=== PATIENT | female | born 1955 | race Hispanic/Latino ===

== ENCOUNTER 2018-09-24 09:21 | Outpatient (CLI) | payer OTHER ==
--- NOTE | 2018-09-26 12:54 | Magnetic Resonance Report ---
BILATERAL BREAST MRI WITHOUT AND WITH CONTRAST: 09/24/18 09:21:00 CLINICAL: Breast cancer survivor status post left partial mastectomy and axillary lymph node dissection for stage I left breast cancer in 1999. She received chemotherapy, radiation therapy, 5 years of tamoxifen and 5 years of Arimidex. She has a family history of breast cancer in her mother and maternal grandmother. She underwent BRCA testing which detected no mutation in 2013. COMPARISON:04/23/18 screening mammogram. TECHNIQUE: Axial 1.0-mm T1 without, axial high resolution 2.0-mm T2 and axial 1.0-mm dynamic Vibrant high-resolution postcontrast T1 fat saturation sequences on a 1.5 Brissa magnet. The examination was performed with an 8 channel dedicated [place] breast coil. Post processing with CAD and subtraction was performed on an [email or web address] workstation. 12.0 cc of Multihance was injected without incident for the contrast portion of the exam. Consent was obtained prior to the administration of the contrast. FINDINGS: Right: Minimal background parenchymal enhancement. No mass or suspicious enhancement. No suspicious right axillary or right internal mammary lymph nodes. Left: Minimal background parenchymal enhancement. No mass or suspicious enhancement. Minimal postsurgical scar. No suspicious left axillary or left internal mammary lymph nodes. IMPRESSION: Normal study with no evidence of cancer. Recommend routine mammographic screening. BI-RADS 1 - - Negative
== END 2018-09-24 09:22 | disposition home or self-care (01) ==
LOC: SPVIMAG 09:21
PROVIDERS: ATTEND Surgery
DX: Z03.89 Encounter for observation for other suspected diseases and conditions ruled out (principal); Z85.3 Personal history of malignant neoplasm of breast
CPT/HCPCS: A9577; C8908; 77049

== ENCOUNTER 2019-11-20 09:08 | Outpatient (CLI) | payer OTHER ==
--- NOTE | 2019-11-20 14:18 | Magnetic Resonance Report ---
BILATERAL BREAST MR WITHOUT AND WITH GADOLINIUM INDICATION: Breast cancer survivor status post left partial mastectomy in 1999. COMPARISONS: 04/25/2019 screening mammogram TECHNIQUE: Axial 1.0 mm T1 without, axial high-resolution 2.0 mm T2 and axial 1.0 mm dynamic vibrant high-resolution postcontrast T1 fat saturation sequences on a 1.5 Brissa magnet. The examination was p erformed with an 8-channel dedicated [place] breast coil. Post-processing with CAD and subtraction was performed on an [employer] workstation. 13.0 cc of MultiHance was injected without incident for the c ontrast portion of the exam. Consent was obtained prior to the administration of the contrast. FINDINGS: RIGHT BREAST: Minimal background parenchymal enhancement. No mass or suspicious enhancement. No suspi cious lymph nodes. LEFT BREAST: Minimal background parenchymal enhancement. No mass or suspicious enhancement. An irregu lar nonenhancing benign postsurgical scar is located far posterior in the upper outer quadrant. No cannon spicious lymph nodes. IMPRESSION: Negative study with no evidence of malignancy. Left benign postsurgical scar. BI-RADS Category 2: Benign. A normal MRI does not exclude the presence of some forms of breast malignancy as literature reports s uggest that some forms of ductal carcinoma in situ or lobular carcinoma, particularly, may not be det ected on MRI. The sensitivity and specificity of MRI for cancers under 5 mm may be reduced. MRI does not replace the recommendation for annual conventional mammographic evaluation and should be used as an adjunct to mammography and physical examination as necessary. Signer Name: Shun Johnston MD Signed: 11/20/2019 2:14 PM Workstation Name: [id number]
== END 2019-11-20 09:09 | disposition home or self-care (01) ==
LOC: SPVIMAG 09:08
PROVIDERS: ATTEND Surgery
DX: L90.5 Scar conditions and fibrosis of skin (principal); Z85.3 Personal history of malignant neoplasm of breast
CPT/HCPCS: A9577; C8908; 77049

== ENCOUNTER 2021-05-12 08:16 | Outpatient (CLI) | payer MEDICARE, OTHER ==
--- NOTE | 2021-05-12 15:41 | Mammography Report ---
DIGITAL SCREENING MAMMOGRAM WITH CAD, 05/12/2021 CLINICAL INFORMATION / INDICATION: Routine screening mammography. TECHNIQUE: Digital bilateral 2D mammography was obtained in the craniocaudal and mediolateral obliqu e projections. This examination was interpreted with the benefit of Computer-Aided Detection analysis . COMPARISON: 04/27/2020, 04/25/2019 FINDINGS: Breast Density: The breasts are heterogeneously dense, which may obscure small masses. No dominant mass, suspicious calcifications, or architectural distortion in either breast. There are similar left breast postoperative changes. IMPRESSION: No mammographic evidence of malignancy. Follow up recommendation: Routine yearly BI-RADS Category 2: Benign. A "normal" or negative report should not discourage follow up or biopsy of a clinically significant f inding. A written summary of these findings will be mailed to the patient. The patient will be entered into a mammography reporting system which will generate a reminder letter for the patient's next appointmen t at the appropriate interval. The [employer] recommends yearly mammograms starting at age 40 and continuing as l emily as a woman is in good health. Breast MRI is recommended for women with an approximate 20-25% or greater lifetime risk of breast cancer, including women with a strong family history of breast or ova bonnie cancer or who have been treated for Hodgkin's disease. Signer Name: Clive Root MD Signed: 05/12/2021 3:37 PM Workstation Name: [id number]
== END 2021-05-12 08:17 | disposition home or self-care (01) ==
LOC: SPVWC 08:16
PROVIDERS: ATTEND Surgery
DX: Z12.31 Encounter for screening mammogram for malignant neoplasm of breast (principal)
CPT/HCPCS: 77063; 77067